=== PATIENT | female | born 1950 | race Caucasian/White ===

== ENCOUNTER → 2018-11-17 21:38 | Outpatient (CLI) | payer MEDICARE, OTHER, SELFPAY ==
[2018-11-17 16:16] VITALS: BMI 30.9
[2018-11-17 21:56] LABS: Absolute Lymphocyte Count 2.05 X10^3/ul (0.83-4.51); Absolute Neutrophil Count 3.5 X10^3/uL (2.0-7.7); Basophil# 0.04 X10^3/uL; Basophil% 0.6 % (0-1); Eosinophil# 0.08 X10^3/uL; Eosinophils% 1.3 % (0-5); Hematocrit 48.6 % (37-47); Hemoglobin 15.2 g/dl (12.0-15.0); Lymphocyte # 2.05 X10^3/ul (4.0); Lymphocyte % 32.2 % (19-41); Mean Corp Hgb Conc 31.3 g/gl (32-36); Mean Corpuscular Hgb 26.4 pg (27.0-32.0); Mean Corpuscular Volume 84.4 fL (81-99); Mean Platelet Vol. 9.7 fl (6.2-12.0); Monocyte# 0.66 X10^3/uL; Monocyte% 10.4 % (0-10); Neutrophil # 3.53 X10^3/uL (2.7-7.7); Neutrophil % 55.3 % (47-70); Platelet Count 262 K/mm3 (150-450); RBC Distribution Width CV 14.9 % (11.6-14.6); Red Blood Count 5.76 M/mm3 (4.2-5.4); White Blood Count 6.4 K/mm3 (4.4-11.0)
[2018-11-17 21:57] LABS: POSITIVE COUNT NO; POSITIVE DIFFERENTIAL NO; POSITIVE MORPHOLOGY NO
[2018-11-17 22:06] LABS: AST(SGOT) 29 U/L (15-37); Alanine Aminotransfer ALT/SGPT 52 U/L (13-56); Albumin, Serum 4.1 g/dL (3.2-5.0); Alkaline Phosphatase 86 U/L (45-117); Anion Gap 9 (5-15); BUN 22 mg/dL (7-18); BUN/Creat Ratio 19.8 RATIO (10-20); Calcium,Total 9.3 mg/dL (8.5-10.1); Chloride 103 mmol/L (98-107); Cholesterol 237 mg/dL (200); Creatinine, Serum 1.11 mg/dL (0.55-1.02); EST Glomerular Filtration Rate 52 mL/min (>60); Est Glom Filt Rate - Afr Amer 63 mL/min (>60); Globulin 4.1 g/dL (2.2-4.2); Glucose 81 mg/dL (74-106); High Density Lipoprotein 68 mg/dL; Magnesium 2.6 mg/dL (1.6-2.6); Potassium 4.4 mmol/L (3.5-5.1); Protein, Total 8.2 g/dL (6.4-8.2); Sodium Level 141 mmol/L (136-145); Triglycerides 107 mg/dL; Very Low Density Lipoprotein 21 mg/dL (5-40)
== END ==
PROVIDERS: Visit Provider Nurse Practitioner
DX: I10 Essential (primary) hypertension (principal); G25.81 Restless legs syndrome; I49.8 Other specified cardiac arrhythmias; R00.0 Tachycardia, unspecified
CPT/HCPCS: 80053; 80061; 83735; 84484; 85025

== ENCOUNTER → 2018-11-28 12:34 | Outpatient (CLI) | payer MEDICARE, OTHER, SELFPAY ==
[2018-11-17 16:16] VITALS: BMI 30.9
--- NOTE | 2018-11-28 12:42 | VDLE_ITS ---
Reason For Study: edema RIGHT LEFT CFV is compressible, spontaneous, phasic, CFV is compressible, spontaneous, phasic, competent and demonstrates normal competent, and demonstrates normal augmentation. augmentation. FV is compressible, spontaneous, phasic, FV is compressible, spontaneous, phasic, competent and demonstrates normal competent and demonstrates normal augmentation. augmentation. POP V is compressible, spontaneous, phasic, POP V is compressible, spontaneous, phasic, competent and demonstrates normal competent and demonstrates normal augmentation. augmentation. T/P Trunk is compressible. T/P Trunk is compressible. PTV is compressible. PTV is compressible. RT PerV is compressible. LT PerV is compressible. S-F Junction is competent. S-F Junction is competent. GSV is competent. GSV is competent above the knee, but SSV is competent. incompetent below the knee for greater Procedure than .5 seconds. GSV measures .2 x .208 cm. Exam performed in department. SSV is competent. The exam was diagnostic. Interpretation Summary Deep veins of the lower extremities are bilaterally patent and compressible segmentally. There is no evidence of deep vein thrombosis on either side. Valvular competence appears intact within the proximal deep venous systems bilaterally. The greater saphenous veins appear bilaterally patent and compressible segmentally. Sapheno-femoral junctions are bilaterally competent . The right greater saphenous vein appears segmentally competent. The left greater saphenous vein appears competent above the knee. The left greater saphenous vein appears incompetent below the knee. Small saphenous veins are patent and competent bilaterally. Ordering Physician: Sandra Bridges Performed By: Anson Campoverde RVT
--- NOTE | 2018-11-28 12:43 | ART_ITS ---
Reason For Study: PVD Left Segmental Pressures The left dorsalis pedis waveforms are triphasic. The left posterior tibial artery waveforms are triphasic. Left brachial= 141mmHg. Left posterior tibial artery = 159mmHg. Left dorsalis pedis artery = 147mmHg. Right Segmental Pressures The right posterior tibial artery waveforms are triphasic. The right dorsalis pedis waveforms are triphasic. Right brachial= 143mmHg. Right posterior tibial artery = 155mmHg. Right dorsalis pedis artery = 158mmHg. Indices The right ankle brachial index by the dorsalis pedis is 1.1. The right ankle brachial index by the posterior tibial artery is 1.08. The left ankle brachial index by the dorsalis pedis is 1.03. The left ankle brachial index by the posterior tibial artery is 1.11. Interpretation Summary Triphasic waveforms are noted at ankle level bilaterally. Pulse-volume recordings demonstrate satisfactory waveform amplitudes at low-thigh, calf, and ankle levels bilaterally, though are diminished at digital level on the left. Resting ankle-brachial indices appear bilaterally normal. There is no evidence of significant arterial occlusive disease. Ordering Physician: Sandra Bridges Performed By: CANDY SANDERSON [place]
== END ==
PROVIDERS: Family Provider Nurse Practitioner; PCP Nurse Practitioner; Referring Provider Nurse Practitioner; Visit Provider Nurse Practitioner
DX: G25.81 Restless legs syndrome (principal); I73.9 Peripheral vascular disease, unspecified; R60.0 Localized edema
CPT/HCPCS: 93923; 93970

== ENCOUNTER → 2020-03-12 20:44 | Outpatient (CLI) | payer MEDICARE, OTHER, SELFPAY ==
[2020-03-12 15:02] VITALS: BMI 31.3
[2020-03-12 21:06] LABS: Absolute Lymphocyte Count 2.05 X10^3/uL (0.83-4.51); Absolute Neutrophil Count 3.4 X10^3/uL (2.0-7.7); Basophil# 0.05 X10^3/uL; Basophil% 0.8 % (0-1); Eosinophil# 0.16 X10^3/uL; Eosinophils% 2.5 % (0-5); Lymphocyte # 2.05 X10^3/ul (4.0); Lymphocyte % 31.9 % (19-41); Mean Corp Hgb Conc 31.9 g/dL (32-36); Mean Corpuscular Volume 84.5 fL (81-99); Mean Platelet Vol. 9.7 fl (6.2-12.0); Monocyte# 0.71 X10^3/uL; NRBC Flagged by Analyzer 0 % (0-5); Neutrophil # 3.44 X10^3/uL (2.7-7.7); Neutrophil % 53.5 % (47-70); Platelet Count 296 K/mm3 (150-450); RBC Distribution Width CV 14.2 % (11.6-14.6); RBC Distribution Width SD 43.6 fl (35.1-43.9); Red Blood Count 5.56 M/mm3 (4.2-5.4); White Blood Count 6.4 K/mm3 (4.4-11.0)
[2020-03-12 21:24] LABS: AST(SGOT) 58 U/L (15-37); Alanine Aminotransfer ALT/SGPT 99 U/L (13-56); Albumin, Serum 3.8 g/dL (3.2-5.0); Alkaline Phosphatase 72 U/L (45-117); Anion Gap 9 (5-15); BUN 21 mg/dL (7-18); BUN/Creat Ratio 20.6 RATIO (10-20); CRP, High Sensitivity Cardiac 4.62 mg/L; Calcium,Total 9.2 mg/dL (8.5-10.1); Chloride 99 mmol/L (98-107); Cholesterol 263 mg/dL (200); Creatinine, Serum 1.02 mg/dL (0.55-1.02); EST Glomerular Filtration Rate 57 mL/min (>60); Est Glom Filt Rate - Afr Amer 69 mL/min (>60); Globulin 3.9 g/dL (2.2-4.2); Glucose 85 mg/dL (74-106); High Density Lipoprotein 66 mg/dL; Potassium 3.1 mmol/L (3.5-5.1); Protein, Total 7.7 g/dL (6.4-8.2); Sodium Level 138 mmol/L (136-145); Thyroid Stim Hormone (TSH) 2.12 uIU/mL (0.358-3.74); Triglycerides 137 mg/dL; Very Low Density Lipoprotein 27 mg/dL (5-40)
== END ==
PROVIDERS: Visit Provider Nurse Practitioner
DX: D64.9 Anemia, unspecified (principal); I10 Essential (primary) hypertension
CPT/HCPCS: 80053; 80061; 84443; 85025; 86141

== ENCOUNTER → 2020-04-28 08:39 | Outpatient (CLI) | payer MEDICARE, OTHER, SELFPAY ==
[2020-04-17 13:05] VITALS: BMI 31.0
--- NOTE | 2020-04-28 08:40 | US_ITS ---
STUDY: ABDOMINAL ULTRASOUND - RIGHT UPPER QUADRANT REASON FOR VISIT: Female, 69 years old FATTY LIVER TECHNIQUE: Ultrasound evaluation of the right upper quadrant was performed with real-time and static patterson-scale imaging. TECHNICAL QUALITY: Adequate. COMPARISON: Comparison is made with prior CT scan of the abdomen dated June 10, 2013. FINDINGS: Liver: The liver measures 16.4 cm. There is increased echogenicity consistent with fatty infiltration. The bile ducts are within normal limits. There is hepatic color flow. The direction of portal flow is hepatopetal. There is no demonstrated mass lesion. Gallbladder: The patient is status post cholecystectomy. Common Bile Duct (C.B.D.): The common bile duct measures 7.0 mm. Pancreas: Normal size of the head, body and tail of the pancreas. There is normal echogenicity of the pancreas. There is no demonstrated pancreatic mass or cyst. Right Kidney: Normal size of the right kidney. The right kidney measures 9.6 cm x 4.4 cm x 3.8 cm. Normal renal cortex. The right cortex measures 1.2 cm. There is no demonstrated renal mass or cyst. There is no right hydronephrosis. US/Liver IMPRESSION: Fatty infiltration of the liver. Electronically Signed: Philip Klein, at 14:32 EDT , Service support ,
== END ==
PROVIDERS: PCP Nurse Practitioner; Referring Provider Internal Medicine Cardiovascular Disease; Visit Provider Internal Medicine Cardiovascular Disease
DX: K76.0 Fatty (change of) liver, not elsewhere classified (principal); R94.5 Abnormal results of liver function studies
CPT/HCPCS: 76705

== ENCOUNTER → 2020-04-30 09:53 | Outpatient (CLI) | payer MEDICARE, OTHER, SELFPAY ==
[2020-04-17 13:05] VITALS: BMI 31.0
--- NOTE | 2020-04-30 09:54 | ECHOCS_ITS ---
Reason For Study: Dyspnea/SOB Procedure This was a 2D Doppler, Color Flow transthoracic echocardiogram. The study was technically difficult. Contrast injection was performed. Exam performed in department. Left Ventricle Normal LV size. Left ventricular systolic function is normal. The estimated ejection fraction is 65 %. Diastolic function is indeterminate. No regional wall motion abnormalities noted. Right Ventricle Normal RV size. Normal systolic function. Atria Normal left atrium. Normal right atrium. No doppler evidence for ASD. Mitral Valve There is no mitral annular calcification. Normal mitral valve. Mild (1+) mitral valve insufficiency. Tricuspid Valve Normal tricuspid valve. Mild tricuspid valve insufficiency. Right ventricular systolic pressure estimated to be 26 mmHg. Aortic Valve Trisinus/trileaflet aortic valve. Mild focal aortic valve calcification. Pulmonic Valve The pulmonic valve is not well visualized. Great Vessels The aortic root is not well visualized. Pericardium/Pleural No pericardial effusion. Medication 22 gauge I.V. with prn adaptor inserted into left arm. Diluted definity 2ml given slow IV push to enhance endocardial definition. MMode/2D Measurements & Calculations LVIDd: 4.3 cm IVSd: 0.89 cm LA dimension: 3.3 cm LVIDs: 2.4 cm LVPWd: 0.67 cm FS: 44.5 % LAV(MOD-bp): 43.2 ml LA A4 area: 14.5 cm2 RA A4 area: 14.0 cm2 LAV(MOD-bp) Indexed: 22.1 ml/m2 LAV(MOD-sp2): 49.2 ml LAV(MOD-sp4): 37.2 ml Time Measurements MV dec time: 0.19 sec Doppler Measurements & Calculations MV E max benji: 80.3 cm/sec Lat Peak E' Benji: 8.7 cm/sec Med Peak E' Benji: 5.9 cm/sec MV A max benji: 96.5 cm/sec E/E' lat: 9.2 E/E' med: 13.7 MV E/A: 0.83 MV V2 max: 97.3 cm/sec MV P1/2t max benji: 97.3 cm/sec Ao V2 max: 149.8 cm/sec MV max P.8 mmHg MV P1/2t: 94.5 msec Ao max P.0 mmHg MV V2 mean: 52.9 cm/sec MV dec slope: 301.5 cm/sec2 MV mean P.3 mmHg MV V2 VTI: 36.9 cm MVA(P1/2t): 2.3 cm2 LV V1 max: 102.0 cm/sec PA V2 max: 55.0 cm/sec TR max benji: 242.0 cm/sec LV V1 max P.2 mmHg TR max P.4 mmHg Interpretation Summary The study was technically difficult. Contrast injection was performed. Left ventricular systolic function is normal. The estimated ejection fraction is 65 %. Mild (1+) mitral valve insufficiency. Mild tricuspid valve insufficiency. Mild focal aortic valve calcification. Right ventricular systolic pressure estimated to be 26 mmHg. Diastolic function is indeterminate. Ordering Physician: Antoine Hall Referring Physician: Antoine Hall Performed By: Daniel Velazquez, GILBERT
--- NOTE | 2020-04-30 10:10 | RAD_ITS ---
STUDY: X-RAY CHEST REASON FOR EXAM: Female, 69 years old. DYSPNEA ON EXERTION, HX BLOOD CLOTS, HX PNEUMONIA TECHNIQUE: 2 views COMPARISON: Prior chest radiograph from June 10, 2013 FINDINGS: The lungs are clear and expanded. There is no demonstrated pleural abnormality. Normal size heart. Normal mediastinum and henny. Normal visualized pulmonary arteries. There is atherosclerotic tortuosity of the aortic arch and descending thoracic aorta. Normal visualized thoracic spine. Normal visualized ribs, clavicles, and shoulders. Status post cholecystectomy. RAD/Chest PA and Lateral IMPRESSION: No acute cardiopulmonary findings or changes. Negative for infiltrates, new consolidation, atelectasis or pleural effusion. Normal cardiac size. Negative for pulmonary venous congestion. Mild tortuosity of the thoracic aorta. Electronically Signed: Lois Brady MD at 16:58 EDT , Service support ,
[2020-04-30 10:50] LABS: BUN 25 mg/dL (7-18); Creatinine, Serum 1.05 mg/dL (0.55-1.02); Glucose 102 mg/dL (74-106)
[2020-04-30 10:51] LABS: Anion Gap 6 (5-15); BUN/Creat Ratio 23.8 RATIO (10-20); Calcium,Total 9.3 mg/dL (8.5-10.1); Chloride 99 mmol/L (98-107); EST Glomerular Filtration Rate 56 mL/min (>60); Est Glom Filt Rate - Afr Amer 67 mL/min (>60); Magnesium 2.1 mg/dL (1.6-2.6); Potassium 3.6 mmol/L (3.5-5.1); Sodium Level 135 mmol/L (136-145)
== END ==
PROVIDERS: Referring Provider Internal Medicine Cardiovascular Disease; Visit Provider Internal Medicine Cardiovascular Disease
DX: I10 Essential (primary) hypertension (principal); E78.2 Mixed hyperlipidemia; R06.00 Dyspnea, unspecified; R53.83 Other fatigue; R06.02 Shortness of breath; E87.6 Hypokalemia
CPT/HCPCS: 71046; 80048; 83735; 93306; Q9957; A4216; C8929

== ENCOUNTER → 2020-05-06 09:29 | Outpatient (CLI) | payer MEDICARE, OTHER, SELFPAY ==
[2020-04-17 13:05] VITALS: BMI 31.0
--- NOTE | 2020-05-06 12:25 | STRESSREP_ITS ---
Stress Test Report Date: 05-06-2020 Procedure: Exercise tolerance test Indications: Shortness of breath/dyspnea on exertion; fatigue Consent: Per the patient Procedure: The patient exercised on a Dwayne protocol for 6 minutes completing Stage 2 achieving a peak heart rate of 131 bpm (85 % predicted maximal heart rate) with a peak blood pressure 160/70 mmHg and a peak MET capacity of approximately 7 mET's. The baseline ECG demonstrated normal sinus rhythm; nonspecific T wave abnormality. The peak exercise ECG demonstrated approximately 0.5 to 1.[address] segment depression in leads II, III, aVF, and V3 through V6 with gradual resolution towards baseline in recovery. There was a rare PAC during exercise. The functional capacity was considered average. The patient had no complaint of chest discomfort during exercise or recovery. The examination was discontinued secondary to dyspnea and fatigue. Impression: 1. Technically adequate (percent predicted maximal heart rate greater than 85%) exercise tolerance test 2. Peak exercise ECG with approximately 0.5 to 1.[address] segment depression in leads II, III, aVF, and V3 through V6 with gradual resolution towards baseline in recovery 3. There was a rare PAC during exercise This note was generated with Jellynote[employer] software. It may contain incorrect words, spelling, and punctuation that were not noted in checking the note before signing.
== END ==
PROVIDERS: Referring Provider Internal Medicine Cardiovascular Disease; Visit Provider Internal Medicine Cardiovascular Disease
DX: R06.00 Dyspnea, unspecified (principal); I10 Essential (primary) hypertension
CPT/HCPCS: 93017

== ENCOUNTER → 2020-05-13 06:19 | Outpatient (CLI) | payer MEDICARE, OTHER, SELFPAY ==
[2020-04-17 13:05] VITALS: BMI 31.0
--- NOTE | 2020-05-13 08:06 | STRESSREP_ITS ---
Stress Test Report Date: 05-13-2020 Procedure: Exercise tolerance test/imaging study Indications: Abnormal exercise tolerance test; chest discomfort; fatigue; hyperlipidemia; hypertension Consent: Per the patient Procedure: The patient exercised on a Dwayne protocol for 6 minutes completing Stage II achieving a peak heart rate of 150 bpm (98 % predicted maximal heart rate) with a peak blood pressure 192/90 mmHg and a peak MET capacity of 7 METs. The baseline ECG demonstrated normal sinus rhythm. The peak exercise ECG demonstrated somatic/motion artifact with [id number] ST segment variability with approximately 1 to 1.[address] segment depression in leads II, III, aVF, and approximately 0.5 to 1.[address] segment depression in lead V4 through V6 with subsequent resolution towards baseline in recovery. There were occasional PVCs and rare ventricular couplets during exercise and early recovery. The functional capacity was considered average. There was no complaint of chest discomfort during exercise or recovery. The examination was discontinued secondary to dyspnea and fatigue. Impression: 1. Technically adequate (percent predicted maximal heart rate greater than 85%) exercise tolerance test 2. Peak exercise ECG demonstrated somatic/motion artifact with [id number] ST segment variability with approximately 1 to 1.[address] segment depression in leads II, III, aVF, and approximately 0.5 to 1.[address] segment depression in lead V4 through V6 with subsequent resolution towards baseline in recovery 3. There were occasional PVCs and rare ventricular couplets during exercise and early recovery 4. Nuclear images pending Myocardial perfusion imaging study: Technique: The patient was injected with mCi of technetium 99m Cardiolite and subsequently rest SPECT Cardiolite nuclear imaging was obtained in the horizontal long, vertical long, and short axis views. The patient exercised on a Dwayne protocol for 6 minutes completing Stage II achieving a peak heart rate of 150 bpm (98 % predicted maximal heart rate) with a peak blood pressure 192/90 mmHg and a peak MET capacity of 7 METs. The patient was injected with mCi of technetium 99m Cardiolite and subsequently stress SPECT Cardiolite nuclear imaging was obtained in the horizontal long, vertical long, and short axis views. A gated Cardiolite study at peak stress was obtained. Interpretation: Rest and stress SPECT Cardiolite nuclear imaging status post realignment, normalization, and attenuation correction, demonstrates a small area of subtle diminished tracer uptake near the apical segments without significant change between rest and stress. There is end systolic thickening and brightening. The gated Cardiolite study demonstrates myocardial thickening and inward wall motion. The reported LVEF is 85 %. Impression: 1. Rest and stress SPECT Cardiolite nuclear imaging demonstrate myocardial perfusion change appearing compatible with the effects of physiologic apical thinning with no myocardial perfusion changes considered diagnostic for associated stress-induced myocardial ischemia. 2. The gated Cardiolite study reports an LVEF of 85 %. This note was generated with [employer] software. It may contain incorrect words, spelling, and punctuation that were not noted in checking the note before signing.
== END ==
PROVIDERS: Referring Provider Nurse Practitioner Family; Visit Provider Nurse Practitioner Family
DX: R94.30 Abnormal result of cardiovascular function study, unspecified (principal); R53.83 Other fatigue; R06.00 Dyspnea, unspecified; I10 Essential (primary) hypertension; E78.5 Hyperlipidemia, unspecified
CPT/HCPCS: 78452; 93017; A9500; A4216

== ENCOUNTER → 2020-05-19 10:32 | Outpatient (CLI) | payer MEDICARE, OTHER, SELFPAY ==
[2020-04-17 13:05] VITALS: BMI 31.0
[2020-05-19 11:30] LABS: Anion Gap 6 (5-15); BUN 23 mg/dL (7-18); BUN/Creat Ratio 20.4 RATIO (10-20); Calcium,Total 9.3 mg/dL (8.5-10.1); Chloride 103 mmol/L (98-107); Creatinine, Serum 1.13 mg/dL (0.55-1.02); EST Glomerular Filtration Rate 51 mL/min (>60); Est Glom Filt Rate - Afr Amer 62 mL/min (>60); Glucose 94 mg/dL (74-106); Potassium 3.4 mmol/L (3.5-5.1); Sodium Level 139 mmol/L (136-145)
== END ==
PROVIDERS: Referring Provider Internal Medicine Cardiovascular Disease; Visit Provider Internal Medicine Cardiovascular Disease
DX: E78.5 Hyperlipidemia, unspecified (principal); I10 Essential (primary) hypertension; I49.8 Other specified cardiac arrhythmias
CPT/HCPCS: 36415; 80048

== ENCOUNTER → 2020-05-29 10:38 | Outpatient (CLI) | payer MEDICARE, OTHER, SELFPAY ==
[2020-04-17 13:05] VITALS: BMI 31.0
[2020-05-29 11:31] LABS: Anion Gap 3 (5-15); BUN 18 mg/dL (7-18); BUN/Creat Ratio 18.3 RATIO (10-20); Calcium,Total 9.1 mg/dL (8.5-10.1); Chloride 109 mmol/L (98-107); Creatinine, Serum 0.99 mg/dL (0.55-1.02); EST Glomerular Filtration Rate 60 mL/min (>60); Est Glom Filt Rate - Afr Amer 72 mL/min (>60); Glucose 96 mg/dL (74-106); Potassium 4.5 mmol/L (3.5-5.1); Sodium Level 141 mmol/L (136-145)
== END ==
PROVIDERS: Referring Provider Internal Medicine Cardiovascular Disease; Visit Provider Internal Medicine Cardiovascular Disease
DX: E78.5 Hyperlipidemia, unspecified (principal); I49.8 Other specified cardiac arrhythmias; I10 Essential (primary) hypertension
CPT/HCPCS: 36415; 80048

== ENCOUNTER → 2020-06-04 11:56 | Outpatient (CLI) | payer MEDICARE, OTHER, SELFPAY ==
[2020-06-02 12:37] VITALS: BMI 30.9
[2020-06-04 16:19] LABS: AST(SGOT) 79 U/L (15-37); Alanine Aminotransfer ALT/SGPT 139 U/L (13-56); Albumin, Serum 3.9 g/dL (3.2-5.0); Alkaline Phosphatase 71 U/L (45-117); Bilirubin, Direct 0.18 mg/dL (0.00-0.30); GGTP 83 U/L (5-55); Globulin 4.1 g/dL (2.2-4.2)
[2020-06-05 08:42] LABS: Hepatitis B Surface Antigen Non-Reactive (Nonreactive)
[2020-06-06 16:35] LABS: ANTINUCLEAR ANTIBODIES DIRECT Negative (Negative)
[2020-06-06 20:36] LABS: Anti-Smooth Muscle ABS 2 Units (0-19)
== END ==
PROVIDERS: Referring Provider Internal Medicine Gastroenterology; Visit Provider Internal Medicine Gastroenterology
DX: K76.0 Fatty (change of) liver, not elsewhere classified (principal)
CPT/HCPCS: 36415; 80076; 82977; 83516; 86038; 87340

== ENCOUNTER 2020-12-18 07:02 | Outpatient (RCR) | payer MEDICARE, OTHER, SELFPAY ==
[2020-06-02 12:37] VITALS: BMI 30.9
[2020-12-18] MEDS: COVID-19 VACC, MRNA(PFIZER)/PF 30 MCG/0.3 ML SYRINGE IM (11:32)
[2021-01-08] MEDS: COVID-19 VACC, MRNA(PFIZER)/PF 30 MCG/0.3 ML SYRINGE IM (11:33)
== END 2020-12-18 23:59 ==
LOC: IMMUN 07:02
PROVIDERS: Referring Provider Family Medicine; Visit Provider Family Medicine
DX: Z23 Encounter for immunization (principal)
CPT/HCPCS: 0001A; 0002A; 91300

== ENCOUNTER → 2021-02-11 08:35 | Outpatient (CLI) | payer MEDICARE, OTHER, SELFPAY ==
[2020-06-02 12:37] VITALS: BMI 30.9
[2021-02-11 10:04] LABS: Anion Gap 8 (5-15); BUN 24 mg/dL (7-18); BUN/Creat Ratio 24.8 RATIO (10-20); Calcium,Total 9.3 mg/dL (8.5-10.1); Chloride 100 mmol/L (98-107); Creatinine, Serum 0.97 mg/dL (0.55-1.02); EST Glomerular Filtration Rate 61 mL/min (>60); Est Glom Filt Rate - Afr Amer 74 mL/min (>60); Glucose 104 mg/dL (74-106); Potassium 3.6 mmol/L (3.5-5.1); Sodium Level 138 mmol/L (136-145)
== END ==
PROVIDERS: Nurse Practitioner Family; Referring Provider Internal Medicine Cardiovascular Disease; Visit Provider Internal Medicine Cardiovascular Disease
DX: E78.5 Hyperlipidemia, unspecified (principal); I10 Essential (primary) hypertension; Z79.899 Other long term (current) drug therapy
CPT/HCPCS: 36415; 80048

== ENCOUNTER → 2021-05-15 10:55 | Outpatient (CLI) | payer MEDICARE, OTHER, SELFPAY ==
[2021-05-12 15:47] VITALS: BMI 31.3
[2021-05-15 12:56] LABS: AST(SGOT) 32 U/L (15-37); Alanine Aminotransfer ALT/SGPT 53 U/L (13-56); Albumin, Serum 3.6 g/dL (3.2-5.0); Alkaline Phosphatase 71 U/L (45-117); Anion Gap 6 (5-15); BUN 20 mg/dL (7-18); BUN/Creat Ratio 21.2 RATIO (10-20); Bilirubin, Direct 0.09 mg/dL (0.00-0.30); Calcium,Total 9.3 mg/dL (8.5-10.1); Chloride 101 mmol/L (98-107); Cholesterol 287 mg/dL (200); Creatinine, Serum 0.94 mg/dL (0.55-1.02); EST Glomerular Filtration Rate 63 mL/min (>60); Est Glom Filt Rate - Afr Amer 76 mL/min (>60); Globulin 4.1 g/dL (2.2-4.2); Glucose 88 mg/dL (74-106); High Density Lipoprotein 72 mg/dL; Potassium 4.1 mmol/L (3.5-5.1); Protein, Total 7.7 g/dL (6.4-8.2); Sodium Level 137 mmol/L (136-145); Triglycerides 134 mg/dL; Very Low Density Lipoprotein 27 mg/dL (5-40)
== END ==
PROVIDERS: Referring Provider Internal Medicine Cardiovascular Disease; Visit Provider Internal Medicine Cardiovascular Disease
DX: I10 Essential (primary) hypertension (principal); E78.2 Mixed hyperlipidemia; I49.8 Other specified cardiac arrhythmias; R94.5 Abnormal results of liver function studies
CPT/HCPCS: 36415; 80048; 80061; 80076

== ENCOUNTER → 2022-10-01 | Outpatient (CLI) | payer MEDICARE, OTHER, SELFPAY ==
--- NOTE | 2022-10-01 10:38 | BI_ITS ---
MAMMOGRAPHY - BILATERAL SCREENING REASON FOR EXAM: Female, 71 years old. Routine annual screening examination. PERTINENT HISTORY: Mother with breast cancer. Bilateral breast implants. TECHNIQUE: Digital bilateral breast elodia (3D mammographic acquisition) in the CC and MLO projections. 2-D mediolateral oblique (MLO) and craniocaudad (CC) views of both breasts were obtained. CAD: Full Field Digital Mammography with Computer Added Detection was performed. COMPARISON: Comparison is made with prior examination 02/07/2021. FINDINGS: Breast Composition: There are scattered areas of fibroglandular density. There are no dominant masses or suspicious calcifications. Stable appearance of the bilateral breast implants. No other significant abnormalities are identified. There has been no significant change since the prior study. BI/SCRN MAMM (CAD)W/ELODIA BILAT IMPRESSION: Stable bilateral screening mammogram. Yearly follow-up mammogram recommended. (A) ASSESSMENT CATEGORY: BIRADS Category 2: Benign. A letter regarding these results will be sent to the patient by the facility within 30 days. Approximately 10% of breast cancers are not detected by mammography. A normal mammogram should not delay biopsy of a clinically suspicious abnormality. [id number] Electronically Signed: Philip Klein MD at 10:09 EST ,
== END | disposition home or self-care (01) ==
PROVIDERS: PCP Family Medicine; Referring Provider Family Medicine; Visit Provider Family Medicine
DX: Z12.31 Encounter for screening mammogram for malignant neoplasm of breast (principal)
CPT/HCPCS: 77063; 77067

== ENCOUNTER 2022-12-14 19:33 | Observation (INO) | payer MEDICARE, OTHER, SELFPAY ==
[2022-12-14 19:35] VITALS: BP 149/98; PULSE 92; RESP 15; TEMP 36.4; O2SAT 98; BMI 29.0
[2022-12-14 19:56] VITALS: BMI 29.0
--- NOTE | 2022-12-14 20:11 | CT_ITS ---
EXAM: CT HEAD WITHOUT INTRAVENOUS CONTRAST CLINICAL INDICATION: weakness TECHNIQUE: Multiple axial images were obtained of the head without intravenous contrast. This CT exam was performed using one or more of the following dose reduction techniques: automated exposure control, adjustment of the mA and/or kV according to patient size, and/or use of iterative reconstruction technique. This report was created using [employer] report generation technology. RADIATION DOSE: CTDIvol = 44.99 mGy, DLP = 812.98 mGy-cm COMPARISON: None. FINDINGS: BRAIN AND EXTRA-AXIAL SPACES: Unremarkable. No intra- or extra-axial hemorrhage. No evidence of acute infarct. No intracranial mass or mass effect. There is preservation of the patterson/white matter interface. Posterior fossa structures are unremarkable. Ventricles are appropriate for age. No hydrocephalus. Basal cisterns are patent. BONES/JOINTS: Unremarkable. No discrete lytic or blastic abnormalities. SINUSES: Unremarkable as visualized. Clear. MASTOID AIR CELLS: Unremarkable. Clear. ORBITS: Visualized globes, extraocular muscles, optic nerves and retrobulbar fat appear unremarkable. CT/Brain/Head without Contrast IMPRESSION: Negative head/brain CT without intravenous contrast. Electronically Signed: Yobani Huang MD at 20:46 EST ,
--- NOTE | 2022-12-14 20:12 | EKG12_ITS ---
Test Reason : DYSRHYTHMIA Blood Pressure : / mmHG Vent. Rate : 088 BPM Atrial Rate : 088 BPM P-R Int : 152 ms QRS Dur : 082 ms QT Int : 368 ms P-R-T Axes : 059 033 033 degrees QTc Int : 445 ms Normal sinus rhythm Normal ECG Confirmed by NAYA VALADEZ, JOSE ([id number]), editorial cartoonist MOISÉS DIXON ([id number]) on 12/16/2022 9:40:36 AM Referred By: CRISTINA Confirmed By:JOSE PERSON MD
[2022-12-14 20:18] VITALS: BMI 29.0
[2022-12-14 20:27] LABS: Absolute Lymphocyte Count 1.74 X10^3/uL (0.83-4.51); Absolute Neutrophil Count 6.5 X10^3/uL (2.0-7.7); Basophil# 0.07 X10^3/uL; Basophil% 0.8 % (0-1); Eosinophil# 0.07 X10^3/uL; Eosinophils% 0.8 % (0-5); Hematocrit 48.3 % (37-47); Lymphocyte # 1.74 X10^3/ul (0.83-4.51); Lymphocyte % 18.9 % (19-41); Mean Corp Hgb Conc 31.1 g/dL (32-36); Mean Corpuscular Hgb 26.5 pg (27.0-32.0); Mean Corpuscular Volume 85.3 fL (81-99); Mean Platelet Vol. 9.5 fl (6.2-12.0); Monocyte# 0.81 X10^3/uL; Monocyte% 8.8 % (0-10); NRBC Flagged by Analyzer 0 % (0-5); Neutrophil # 6.45 X10^3/uL (2.7-7.7); Neutrophil % 70.2 % (47-70); Platelet Count 301 K/mm3 (150-450); RBC Distribution Width CV 15.5 % (11.6-14.6); Red Blood Count 5.66 M/mm3 (4.2-5.4); White Blood Count 9.2 K/mm3 (4.4-11.0)
[2022-12-14 20:43] LABS: AST(SGOT) 16 U/L (15-37); Alanine Aminotransfer ALT/SGPT 21 U/L (13-56); Alkaline Phosphatase 72 U/L (45-117); Anion Gap 10 (5-15); BUN 19 mg/dL (7-18); BUN/Creat Ratio 16.1 RATIO (10-20); Calcium,Total 9.7 mg/dL (8.5-10.1); Chloride 103 mmol/L (98-107); Creatinine, Serum 1.18 mg/dL (0.55-1.02); EST Glomerular Filtration Rate 48 mL/min (>60); Est Glom Filt Rate - Afr Amer 58 mL/min (>60); Estimated Creatinine Clearance 41.53 ml/min; Glucose 160 mg/dL (74-106); Potassium 3.8 mmol/L (3.5-5.1); Sodium Level 139 mmol/L (136-145); Troponin-I HS 5 pg/mL (3.0-54.0)
--- NOTE | 2022-12-14 21:21 | EX.ED.DYSGE1 ---
HPI History of Present Illness Chief Complaint: Neuro S/Sx Narrative Narrative: Patient presents with paresthesias right arm, paresthesias in the right leg, she does not know if she had difficulties with her speech or if she thought the right side of her tongue was swollen but she felt like something was not right. This has resolved. She was recently admitted for a pulmonary embolism at [facility] she is on Eliquis. She has a strong family history of of stroke. She does not know if her arm was weak or if she just had paresthesias she knows that her legs she could not move quite as well. She feels like symptoms have significantly improved. Symptoms lasted around an hour or less. There was an episode earlier this morning where she had some left inner thigh pain that she took [id number] analgesics and it improved. [facility] Medical History Abnormal liver function test Anemia Anemia B12 nutritional deficiency Dizziness Essential hypertension Fatty liver Fluttering heart History of blood clots History of DVT (deep vein thrombosis) (12/02/22) History of left heart catheterization (LHC) (~09/05/07) Hyperlipidemia Lower abdominal pain Lower extremity weakness Pneumonia Recurrent UTI Renal insufficiency Restless leg Home Medications meloxicam 15 mg tablet 15 mg PO DAILY PRN 05/12/21 [History Last Taken Unknown] ascorbate calcium (vitamin C) 500 mg tablet 500 mg PO .Weekly 09/14/22 [History Last Taken Unknown] aspirin 81 mg tablet,delayed release (Adult Low Dose Aspirin) 81 mg PO .QO week 09/14/22 [History Last Taken Unknown] magnesium oxide 400 mg PO .3X week 09/14/22 [History Last Taken Unknown] tumeric 100 mg-steven 150 mg-olive 50 mg-oreg 150 mg-caprylate capsule 1 cap PO .QOD 09/14/22 [History Last Taken Unknown] vitamin E mixed 400 unit capsule 400 unit PO DAILY 09/14/22 [History Last Taken Unknown] atenolol 25 mg tablet 25 mg PO BID 09/21/22 [History Last Taken Unknown] spironolactone 25 mg tablet 25 mg PO BID #60 tabs 11/09/22 [Rx Last Taken Unknown] apixaban 5 mg tablet (Eliquis) 5 mg PO .COMPLEX #1 TAB 12/07/22 [Rx Last Taken Unknown] Allergy/AdvReac Type Severity Reaction Status Date / Time sulfamethoxazole Allergy Severe UNK Verified 12/14/22 10:19 [From Bactrim] trimethoprim [From Bactrim] Allergy Severe UNK Verified 12/14/22 10:19 lisinopril AdvReac Severe cough Verified 12/14/22 10:19 Sulfa (Sulfonamide AdvReac Unknown unknown Verified 12/14/22 10:19 Antibiotics) Family History Mother CVA (cerebral vascular accident) Aneurysm Other Colon cancer Diabetes Heart disease Hypertension Kidney disease MVP (mitral valve prolapse) Surgical History History of appendectomy History of cholecystectomy Social History Smoking Status: Never smoker alcohol intake: never substance use type: does not use caffeine: Yes Type: coffee Number of servings: 1 ROS ROS ED ROS Narrative Past medical history: Reviewed, history of DVT, PE, thrombus at the right ventricle patient denies Medications: Reviewed Social history: Noncontributory Review of systems: All systems negative except as indicated General: No fever Eyes: No visual changes ENT: No upper airway congestion, normal voice Neck: No neck pain Cardiovascular: No chest pain Respiratory: No shortness of breath or cough Gastrointestinal: No abdominal pain, nausea vomiting or diarrhea Genitourinary: No dysuria Musculoskeletal: Denies myalgias no difficulty with ambulation Skin: No rash Neurological: as in HPI Psych: No recent behavioral changes Hematologic: No easy bleeding or easy bruising EXAM Physical Exam Narrative Exam Narrative: Physical exam General: Well nourished, Well developed, No Acute Distress Head: Normocephalic, Atraumatic Eyes: Conjunctiva not pale ENT: Moist mucous membranes Neck: Supple, Nontender, No lymphadenopathy Cardiovascular: Regular rate, Regular rhythm Respiratory: No distress, CTA bilaterally Abdomen: Soft, Nontender, Nondistended Back: Nontender, Normal Inspection. Negative for: CVA tenderness Extremities: Nontender, No edema Skin: Normal color, No rash Neurological: See NIH stroke scale Psychological: Normal affect Const Vital Signs: 12/14/22 19:35 Temperature 97.5 F L Temperature Source Temporal Pulse Rate 92 Respiratory Rate 15 Blood Pressure 149/98 H Blood Pressure Mean 115 Pulse Ox 98 Oxygen Delivery Method Room Air MDM MDM MDM Narrative Medical decision making narrative: A. Problems addressed Patient signs and symptoms are concerning for possible TIA likely in the MCA distribution on the left, I had a long discussion with the patient, her ABCD2 score is a 5 and the recommendation is for admission for an MRI. She also supposed to have echocardiogram tomorrow which could be done inpatient. B. Amount and/or complexity of the data 1. Echocardiogram done outpatient at [facility] shows multiple small thrombi on the right side of the heart in the ventricle CBC CMP troponin interpreted by me I discussed the patient with who was in the room 2. Independent interpretation of test Telemetry: Sinus rhythm with a rate of 88 without ectopy 3. I discussed with hospitalist for admission C. Risk of complications and/or morbidity Differential diagnosis: I thought about an intracranial bleed, intracranial mass and possible stroke as well as possible electrolyte abnormalities. Lab Data Labs: Laboratory Results - last 24 hr 12/14/22 12/14/22 19:50 19:50 WBC 9.2 RBC 5.66 H Hgb 15.0 Hct 48.3 H MCV 85.3 MCH 26.5 L MCHC 31.1 L RDW Std Deviation 48.0 H RDW Coeff of Imani 15.5 H Plt Count 301 MPV 9.5 Immature Gran % (Auto) 0.500 Neut % (Auto) 70.2 H Lymph % (Auto) 18.9 L [place] % (Auto) 8.8 Eos % (Auto) 0.8 Baso % (Auto) 0.8 Absolute Neuts (auto) 6.5 Absolute Lymphs (auto) 1.74 Nucleated RBC % 0 Sodium 139 Potassium 3.8 Chloride 103 Carbon Dioxide 26.0 Anion Gap 10 BUN 19 H Creatinine 1.18 H Estim Creat Clear Calc 41.53 Est GFR (MDRD) Af Amer 58 L Est GFR (MDRD) Non-Af 48 L BUN/Creatinine Ratio 16.1 Glucose 160 H Calcium 9.7 Total Bilirubin 0.30 AST 16 ALT 21 Alkaline Phosphatase 72 Troponin I High Sens 5 Total Protein 8.0 Albumin 4.0 Globulin 4.0 Albumin/Globulin Ratio 1.0 Radiography Diagnostic Testing: Clinical Impression(s) from Imaging Studies Brain CT 12/14/22 20:11 IMPRESSION: Negative head/brain CT without intravenous contrast. Electronically Signed: Yobani Huang MD at 20:46 EST , EKG Initial EKG: Comments: Sinus rhythm with a rate of 88. Normal CO and QTc intervals. No ischemic changes. Interpreted by emergency doctor Discharge Plan Triage Chief Complaint: Neuro S/Sx ED Provider: Antoine Allen Dx/Rx/DC Orders Clinical Impression: Pulmonary embolism, TIA (transient ischemic attack), Arm paresthesia, left Prescriptions: No Action aspirin [Adult Low Dose Aspirin] 81 mg tablet,delayed release (DR/EC) 81 mg PO .QO week meloxicam 15 mg tablet 15 mg PO DAILY PRN vitamin E mixed 400 unit capsule 400 unit PO DAILY ascorbate calcium (vitamin C) 500 mg tablet 500 mg PO .Weekly magnesium oxide 400 mg magnesium tablet 400 mg PO .3X week hulwrbx-vohv-khvgr-oreg-capryl 100 mg-150 mg- 50 mg-150 mg capsule 1 cap PO .QOD atenolol 25 mg tablet 25 mg PO BID spironolactone 25 mg tablet 25 mg PO BID Qty: 60 11RF Eliquis 5 mg tablet 5 mg PO .COMPLEX Qty: 1 0RF Rx Instructions: 5 mg orally 10 mg (2 tablets) twice a day for 7 days (until Tuesday12/11/22) , then 5 mg twice a day; Primary Care Provider: Isabela Juarez Referrals: Isabela Juarez DO [Primary Care Provider] - Disposition Disposition: Acute Care Hospital [facility] NIHSS NIHSS 1a. Level of Consciousness: Alert; keenly responsive 1b. LOC Questions: Answers BOTH questions correctly. 1c. LOC Commands: Performs both tasks correctly. 2. Best Gaze: Normal 3. Visual: No visual loss 4. Facial Palsy: Normal symmetrical movements 5a. Left Arm: No drift; arm holds 90 (or 45) degrees for full 10 seconds 5b. Right Arm: No drift; arm holds 90 (or 45) degrees for full 10 seconds 6a. Left Leg: No drift; leg holds 30-degree position for full 5 seconds 6b. Right Leg: No drift; leg holds 30-degree position for full 5 seconds 7. Limb Ataxia: Absent 8. Sensory: Normal; no sensory loss 9. Best Language: No aphasia; normal 10. Dysarthria: Normal 11. Extinction and Inattention: No abnormality Total: 0
--- NOTE | 2022-12-14 21:58 | HP.PCM.HOS_ITS ---
HPI - General General Date of Admission: 12/14/22 Date of Service: 12/14/22 Chief Complaint: Numbness HPI Narrative SAVANNAH GRIER, is a 72 F with a significant history of hypertension; thrombosis of right ventricle; DVT and PE who presents emergency department with right and right leg numbness that started about an hour before presentation. Patient denies aphasia but she reports dryness of her mouth. States oversensing was palpitations. Also she reports some irregular heart rates measured at on a machine at home. She reports some tachycardia She denies any weakness. Of note patient was at [facility] for DVT and PE on December 04, 2022. She was discharged home on Eliquis. [facility] Medical History Abnormal liver function test Anemia Anemia B12 nutritional deficiency Dizziness Essential hypertension Fatty liver Fluttering heart History of blood clots History of DVT (deep vein thrombosis) (12/02/22) History of left heart catheterization (LHC) (~09/05/07) Hyperlipidemia Lower abdominal pain Lower extremity weakness Pneumonia Recurrent UTI Renal insufficiency Restless leg Home Medications ascorbate calcium (vitamin C) 500 mg tablet 500 mg PO .Weekly 09/14/22 [History Last Taken Unknown] aspirin 81 mg tablet,delayed release (Adult Low Dose Aspirin) 81 mg PO .QO week 09/14/22 [History Last Taken Unknown] magnesium oxide 400 mg PO .3X week 09/14/22 [History Last Taken Unknown] vitamin E mixed 400 unit capsule 400 unit PO DAILY 09/14/22 [History Last Taken Unknown] atenolol 25 mg tablet 25 mg PO BID 09/21/22 [History Last Taken Unknown] apixaban 5 mg tablet (Eliquis) 5 mg PO .COMPLEX #1 TAB 12/07/22 [Rx Last Taken Unknown] calcium cmb no.1-vit M6-V5-CT-B12 120 mg-1,000 unit-10 mg tablet 1,000 tab PO DAILY supplement 12/14/22 [History Last Taken 12/13/22] spironolactone 25 mg tablet 25 mg PO DAILY 12/14/22 [History Last Taken Unknown] Allergy/AdvReac Type Severity Reaction Status Date / Time sulfamethoxazole Allergy Severe UNK Verified 12/14/22 10:19 [From Bactrim] trimethoprim [From Bactrim] Allergy Severe UNK Verified 12/14/22 10:19 lisinopril AdvReac Severe cough Verified 12/14/22 10:19 Sulfa (Sulfonamide AdvReac Unknown unknown Verified 12/14/22 10:19 Antibiotics) Family History Mother CVA (cerebral vascular accident) Aneurysm Other Colon cancer Diabetes Heart disease Hypertension Kidney disease MVP (mitral valve prolapse) Surgical History History of appendectomy History of cholecystectomy Social History Smoking Status: Never smoker alcohol intake: never substance use type: does not use caffeine: Yes Type: coffee Number of servings: 1 ROS ROS Narrative Pertinent positives and pertinent negatives as noted in HPI. All other systems were reviewed and are negative Vital Signs Vital Signs Vital Signs: 12/14/22 19:35 Temperature 97.5 F L Temperature Source Temporal Pulse Rate 92 Respiratory Rate 15 Blood Pressure 149/98 H Blood Pressure Mean 115 Pulse Ox 98 Oxygen Delivery Method Room Air Weight Weight: 81.5 kg Body Mass Index (BMI) 29.0 Physical Exam Narrative Physical exam: General: Well-nourished, well-developed. Head: Normocephalic, atraumatic, no tenderness Eyes: Vision is grossly intact. EOMI ENT, no trauma, moist mucous membranes, no rhinorrhea Neck: Nontender, No thyromegaly. CVS: Regular rate and rhythm. S1-S2 present. No murmur, gallop or rub. Respiratory : clear to auscultation bilaterally, chest wall nontender, no wheezing Abdomen: Soft, nontender, nondistended, normal bowel sounds, no masses : Deferred Back: Nontender, no CVA tenderness. Extremities: Nontender full range of motion, no trauma Skin: Normal color, no trauma, abrasions Neuro: Alert, oriented, cranial nerves II through XII grossly intact. Strength in all extremities 5 out of 5. Deep tendon reflexes not hyperreflexia. No dysm etria with wepaht-lk-rqjd test and kvqz-ko-weod test. Psychiatry: Normal mood. Normal affect. Not depressed. Not anxious. Results Lab / Micro Data Result Diagrams: 12/14/22 19:50 12/14/22 19:50 Labs: Laboratory Results - last 24 hr 12/14/22 19:50: WBC 9.2, RBC 5.66 H, Hgb 15.0, Hct 48.3 H, MCV 85.3, MCH 26.5 L, MCHC 31.1 L, RDW Std Deviation 48.0 H, RDW Coeff of Imani 15.5 H, Plt Count 301, MPV 9.5, Immature Gran % (Auto) 0.500, Neut % (Auto) 70.2 H, Lymph % (Auto) 18.9 L, [place] % (Auto) 8.8, Eos % (Auto) 0.8, Baso % (Auto) 0.8, Absolute Neuts (auto) 6.5, Absolute Lymphs (auto) 1.74, Nucleated RBC % 0 12/14/22 19:50: Sodium 139, Potassium 3.8, Chloride 103, Carbon Dioxide 26.0, Anion Gap 10, BUN 19 H, Creatinine 1.18 H, Estim Creat Clear Calc 41.53, Est GFR (MDRD) Af Amer 58 L, Est GFR (MDRD) Non-Af 48 L, BUN/Creatinine Ratio 16.1, Glucose 160 H, Calcium 9.7, Total Bilirubin 0.30, AST 16, ALT 21, Alkaline Phosphatase 72, Troponin I High Sens 5, Total Protein 8.0, Albumin 4.0, Globulin 4.0, Albumin/Globulin Ratio 1.[address] 12/14/22 20:11 IMPRESSION: Negative head/brain CT without intravenous contrast. Electronically Signed: Yobani Huang MD at 20:46 EST Reading Location ID and State: [facility] / [place] , Service support , Assessment & Plan Assessment/Plan (1) Paresthesia: (2) Essential hypertension: PLAN: Plan Paresthesia Serial NINDS NIH Scale ordered Impression of head CT by radiology: Negative. Upon my personal head CT image review: I agree with radiologist interpretation Lipid profile and A1c ordered. Physical therapy, occupational therapy and to work with patient. N.p.o. until bedside swallow eval. Daily aspirin. Patient has reservation about statins at this time. We will check lipid panel. Permissive hypertension. Control blood pressure with labetalol for systolic blood pressure of more than 220 or diastolic blood pressure of more than 120. MRI/MRA of head; brain; and neck. Echocardiogram ordered. Review of record shows that the patient had echocardiogram on 12/06/2022 as a follow-up of PE. The echocardiogram showed multiple mobile clots in the right ventricular outflow tracts. Reportedly patient had a follow-up echocardiogram at the hospital on 12/15/2022. Hypertension Blood pressure is not within goal. Because of permissive hypertension Home blood pressure medications will be held. Trend blood pressures. DVT prophylaxis: Not indicated as patient is on Eliquis for recent VTE. Eliquis continued. Charges/Coding Visit Charges Inpatient E&M: 07980 Init Hosp L2
[2022-12-14 22:37] VITALS: BP 134/78; PULSE 75; RESP 19; TEMP 36.4; O2SAT 93
[2022-12-14 23:12] VITALS: BMI 28.9
[2022-12-14 23:37] VITALS: BP 147/81; PULSE 71; RESP 16; TEMP 36.7; O2SAT 96
[2022-12-15] VITALS (7 sets, daily range): BP systolic 122–149; BP diastolic 73–86; PULSE 68–72; RESP 15–17; TEMP 36.4–36.8; O2SAT 92–96; BMI 28.9
--- NOTE | 2022-12-15 00:51 | NURSING ---
Pt educated about MRI tomorrow. Pt expressed feelings of claustrophobia and denied need of medication for MRI.
[2022-12-15 06:18] LABS: Absolute Lymphocyte Count 1.65 X10^3/uL (0.83-4.51); Absolute Neutrophil Count 4.1 X10^3/uL (2.0-7.7); Basophil# 0.06 X10^3/uL; Basophil% 0.9 % (0-1); Eosinophil# 0.09 X10^3/uL; Eosinophils% 1.4 % (0-5); Hematocrit 43.1 % (37-47); Hemoglobin 13.3 g/dL (12.0-15.0); Lymphocyte # 1.65 X10^3/ul (0.83-4.51); Lymphocyte % 24.9 % (19-41); Mean Corp Hgb Conc 30.9 g/dL (32-36); Mean Corpuscular Hgb 26.3 pg (27.0-32.0); Mean Corpuscular Volume 85.2 fL (81-99); Mean Platelet Vol. 9.2 fl (6.2-12.0); Monocyte% 10.6 % (0-10); NRBC Flagged by Analyzer 0 % (0-5); Neutrophil # 4.09 X10^3/uL (2.7-7.7); Neutrophil % 61.7 % (47-70); Platelet Count 258 K/mm3 (150-450); RBC Distribution Width CV 15.5 % (11.6-14.6); RBC Distribution Width SD 48.3 fl (35.1-43.9); Red Blood Count 5.06 M/mm3 (4.2-5.4); White Blood Count 6.6 K/mm3 (4.4-11.0)
[2022-12-15 06:50] LABS: Anion Gap 6 (5-15); BUN 23 mg/dL (7-18); BUN/Creat Ratio 25.8 RATIO (10-20); Calcium,Total 9.1 mg/dL (8.5-10.1); Chloride 108 mmol/L (98-107); Cholesterol 227 mg/dL (200); Creatinine, Serum 0.89 mg/dL (0.55-1.02); EST Glomerular Filtration Rate 66 mL/min (>60); Est Glom Filt Rate - Afr Amer 80 mL/min (>60); Estimated Creatinine Clearance 55.06 ml/min; Glucose 95 mg/dL (74-106); High Density Lipoprotein 64 mg/dL; Potassium 4.2 mmol/L (3.5-5.1); Sodium Level 138 mmol/L (136-145); Triglycerides 72 mg/dL; Very Low Density Lipoprotein 14 mg/dL (5-40)
[2022-12-15 08:50] LABS: Hemoglobin A1c 5.4 % (3.8-5.6)
[2022-12-15] MEDS: APIXABAN 5 MG TABLET PO (09:54)
[2022-12-15] MEDS: Aspirin 81 MG TAB.CHEW PO (09:54)
--- NOTE | 2022-12-15 11:04 | CT_ITS ---
STUDY: CT BRAIN WITHOUT CONTRAST REASON FOR EXAM: Female, 72 years old. Right parasthesia RADIATION DOSAGE (If Supplied By Facility): CTDIvol = ( 29.25 ) mGy, DLP = ( 1482.83 ) mGycm TECHNIQUE: Transaxial CT imaging of the brain was performed without administration of intravenous contrast material. Individualized dose optimization techniques were used for this CT. COMPARISON: Head CT dated December 14, 2022 FINDINGS: Normal soft tissue structures. Normal calvarium. There is no visualized dense artery sign or sulcal effacement. There is mild cerebral atrophy with widening of the extra-axial spaces and ventricular dilatation. Normal white matter tracts of the cerebral hemispheres. Normal basal ganglia and thalami. Normal brainstem. Normal cerebellum. There is no intracranial hemorrhage. There are no findings of an acute ischemic infarction. Normal visualized paranasal sinuses. IMPRESSION: Chronic involutional changes of the brain. STUDY: CTA HEAD AND NECK WITH CONTRAST REASON FOR EXAM: Female, 72 years old. Right parasthesia RADIATION DOSAGE (If Supplied By Facility): CTDIvol = ( 29.25 ) mGy, DLP = ( 1482.83 ) mGycm TECHNIQUE: CT angiography was performed with a multi-detector CT scanner. Data acquisition was obtained from the skull base through the vertex following intravenous administration of IV 100mL [id number]-[id number]. MIP images were reconstructed from the axial data set. Post-processing of the angiographic images was performed, with multiplanar reformation and 3D reconstruction. Individualized dose optimization techniques were used for this CT. COMPARISON: No relevant priors. FINDINGS: CTA of the head: Normal bilateral petrous carotid arteries. There is calcified plaque formation of the right cavernous carotid artery, with a mild stenosis (less than 50%). There is calcified plaque formation of the left cavernous carotid artery, without a cross-sectional luminal stenosis. Normal right A1 segments of the anterior cerebral artery. Normal left A1 segments of the anterior cerebral artery. Normal intact anterior communicating artery (ACOM). Normal bilateral A2 segments of the anterior cerebral arteries. Normal right M1 and M2 segments of the middle cerebral arteries, with a normal M1 bifurcation. Normal left M1 and M2 segments of the middle cerebral arteries, with a normal M1 bifurcation. Normal right posterior communicating artery (PCOM). Normal left posterior communicating artery (PCOM). Normal bilateral vertebral arteries. Normal basilar artery with a normal basilar bifurcation. The visualized bilateral superior cerebellar (SCA) arteries are normal. Normal bilateral P1, P2 and visualized P3 segments of the posterior cerebral arteries. There is no demonstrated aneurysm of the tangirnaq of [place]. There is no demonstrated abnormality of the visualized brain. Neck: A partially occlusive embolus is present in several branches of a left upper lobe pulmonary artery seen on images 7 through 32/550 series 4. AORTIC ARCH: There is atherosclerotic calcific plaque formation of the aortic arch and great vessels arising from the aortic arch, without a hemodynamically significant stenosis. There is a normal origin of the brachiocephalic, left common carotid, and left subclavian arteries. Normal origins of the brachiocephalic, left common carotid, and left subclavian arteries. RIGHT CAROTID ARTERIES: Normal right common carotid artery (CCA). There is mild atherosclerotic plaque formation with minimal narrowing of the right carotid bulb. There is mild atherosclerotic plaque formation of the origin of the right internal carotid artery with less than 50% cross sectional diameter stenosis. Normal visualized cervical portion of the right internal carotid artery. Normal origin of the right external carotid artery (ECA). LEFT CAROTID ARTERIES: Normal left common carotid artery (CCA). A single tiny eccentric focus of atherosclerotic calcification is present in the left carotid bulb. Normal left common carotid bulb. Normal origin of the left internal carotid (ICA) artery without a hemodynamically significant stenosis. Normal visualized cervical portion of the left internal carotid artery. Normal origin of the left external carotid artery (ECA). VERTEBRAL ARTERIES: Normal bilateral vertebral arteries. CT/CTA Head AND Neck W/ Contrast IMPRESSION: 1. Normal tangirnaq of [place] without a demonstrated aneurysm or hemodynamically significant stenosis. 2. Mild atherosclerotic plaque and minimal narrowing of the right carotid bulb and origin of the ICA. Essentially normal left sided neck carotid artery and ICA. 3. A partially occlusive embolus is present in several branches of a left upper lobe pulmonary artery seen on images 7 through 32/550 series 4. N.B. : The above Results were Read Back by Fabrice Guzman MD to Kraig Lee RN, and understanding confirmed on 12/15/2022 12:29:40 (ET). Electronically Signed: Fabrice Guzman MD at 12:54 EST ,
--- NOTE | 2022-12-15 18:27 | DCINST_ITS ---
Discharge Instructions Diet Discharge Diet: No restrictions Activity Discharge Activity: Return to Normal Activity Weight Bearing Status: Full weight bearing Follow Up Care Test Results: Test results from this visit will be discussed in further detail at your follow- up appointment, if applicable. Discharge Plan Admission Admit Date/Time: 12/14/22 22:22 Primary Reason for Your Visit: parathesias of right arm and leg Attending Provider: Ran Brizuela Primary Care Provider: Isabela Juarez Consulting Providers: Sreekanth Hart Discharge Orders/Prescriptions Prescriptions: Continued vitamin E mixed 400 unit capsule 400 unit PO DAILY ascorbate calcium (vitamin C) 500 mg tablet 500 mg PO .Weekly magnesium oxide 400 mg magnesium tablet 400 mg PO .3X week Ca cmb no.1-vit J4-H2-FG-B12 120-1,000-10 mg-unit-mg Tablet 1,000 tab PO DAILY spironolactone 25 mg tablet 25 mg PO DAILY atenolol 25 mg tablet 25 mg PO BID Eliquis 5 mg tablet 5 mg PO .COMPLEX Qty: 1 0RF Rx Instructions: 5 mg orally 10 mg (2 tablets) twice a day for 7 days (until Tuesday12/11/22) , then 5 mg twice a day; Discontinued aspirin [Adult Low Dose Aspirin] 81 mg tablet,delayed release (DR/EC) 81 mg PO .QO week Referrals / Follow Up: Sreekanth Steve MD [Med Staff - Active Staff] - See Referral Note (as scheduled) Isabela Juarez DO [Primary Care Provider] - See Referral Note (within one month) Antoine Hall MD [Med Staff - Active Staff] - See Referral Note (as scheduled) Disposition Disposition (needs filled in before D/C Order can be placed): Home, Self Care
--- NOTE | 2022-12-15 18:32 | PCM.DC.SUM ---
Providers Date of Admission: 12/14/22 Date of Discharge: 12/15/22 Primary Care Physician: Dr. Isabela Juarez, DO Reason For Visit: STROKELIKE SYMPTOMS Diagnosis Discharge Diagnosis (1) Paresthesia: Status: Acute Code(s): R20.2 - Paresthesia of skin (2) Essential hypertension: Status: Acute Code(s): I10 - Essential (primary) hypertension Plan 1. Paresthesias in the right arm and right leg-etiology unknown #2 recent pulmonary embolism 2022-present on admission Medications at Discharge Home Medications ascorbate calcium (vitamin C) 500 mg tablet 500 mg PO .Weekly 09/14/22 magnesium oxide 400 mg PO .3X week 09/14/22 vitamin E mixed 400 unit capsule 400 unit PO DAILY 09/14/22 atenolol 25 mg tablet 25 mg PO BID 09/21/22 calcium cmb no.1-vit [id number] 120 mg-1,000 unit-10 mg tablet 1,000 tab PO DAILY supplement 12/14/22 spironolactone 25 mg tablet 25 mg PO DAILY 12/14/22 apixaban 5 mg tablet (Eliquis) 5 mg PO BID #180 tabs 12/16/22 Hospital Course Operations None Procedures None Summary of Care Provided Minutes Spent on Discharge: 31 Hospital Course: This 72-year-old white female was seen in the emergency room at [facility] with complaints of tingling in her left arm and left leg. Patient denied any focal weakness. Patient had recently been admitted to [facility] and was placed on Eliquis due to a pulmonary embolism. Patient stated that her symptoms of tingling in her left arm and left leg lasted for approximately an hour or less. Work-up in the emergency room included a CT of the brain which showed no abnormality, patient was admitted to PCU and underwent an MRI which was unremarkable. I reviewed the patient's hospital records from [facility], she had evidence of small clots in the right ventricle. I assured the patient that these would be reabsorbed if she continued on the Eliquis, it was my opinion that she did not need a repeat echocardiogram performed now. On 12/15/2022, patient was seen and examined: On examination she appeared in good health and spirits, she does not appear to be in any distress. Vital signs as documented. Skin warm and dry and without overt rashes. Neck without JVD, thyroid appears normal, trachea is midline, neck is supple. Lungs clear, normal air movement was noted. Heart exam notable for regular rhythm, normal sounds and absence of murmurs, rubs or gallops. Abdomen unremarkable and without evidence of organomegaly, masses, or abdominal aortic enlargement, bowel sounds are present in all 4 quadrants, no abdominal tenderness was noted. Extremities nonedematous, no cyanosis was noted, no clubbing was noted. Neuro: Cranial nerves II through XII are grossly intact, no focal motor deficits were noted, sensation to light touch and pinprick is intact, motor exam 5/5 throughout. Psych: Patient is alert and oriented x3, she does not appear anxious or depressed, she does not appear agitated. Patient was discharged in stable condition on 12/15/2022. Weight / BMI Weight Weight: 81.3 kg Body Mass Index (BMI) 28.9 ABG / Lab / Microbiology Data Result Diagrams: 12/15/22 05:45 12/15/22 05:45 Laboratory: Laboratory Results - last 24 hr 12/14/22 19:50: WBC 9.2, RBC 5.66 H, Hgb 15.0, Hct 48.3 H, MCV 85.3, MCH 26.5 L, MCHC 31.1 L, RDW Std Deviation 48.0 H, RDW Coeff of Imani 15.5 H, Plt Count 301, MPV 9.5, Immature Gran % (Auto) 0.500, Neut % (Auto) 70.2 H, Lymph % (Auto) 18.9 L, [place] % (Auto) 8.8, Eos % (Auto) 0.8, Baso % (Auto) 0.8, Absolute Neuts (auto) 6.5, Absolute Lymphs (auto) 1.74, Nucleated RBC % 0 12/14/22 19:50: Sodium 139, Potassium 3.8, Chloride 103, Carbon Dioxide 26.0, Anion Gap 10, BUN 19 H, Creatinine 1.18 H, Estim Creat Clear Calc 41.53, Est GFR (MDRD) Af Amer 58 L, Est GFR (MDRD) Non-Af 48 L, BUN/Creatinine Ratio 16.1, Glucose 160 H, Calcium 9.7, Total Bilirubin 0.30, AST 16, ALT 21, Alkaline Phosphatase 72, Troponin I High Sens 5, Total Protein 8.0, Albumin 4.0, Globulin 4.0, Albumin/Globulin Ratio 1.0 12/15/22 05:45: WBC 6.6, RBC 5.06, Hgb 13.3, Hct 43.1, MCV 85.2, MCH 26.3 L, MCHC 30.9 L, RDW Std Deviation 48.3 H, RDW Coeff of Imani 15.5 H, Plt Count 258, MPV 9.2, Immature Gran % (Auto) 0.500, Neut % (Auto) 61.7, Lymph % (Auto) 24.9, [place] % (Auto) 10.6 H, Eos % (Auto) 1.4, Baso % (Auto) 0.9, Absolute Neuts (auto) 4.1, Absolute Lymphs (auto) 1.65, Nucleated RBC % 0 12/15/22 05:45: Sodium 138, Potassium 4.2, Chloride 108 H, Carbon Dioxide 24.0, Anion Gap 6, BUN 23 H, Creatinine 0.89, Estim Creat Clear Calc 55.06, Est GFR (MDRD) Af Amer 80, Est GFR (MDRD) Non-Af 66, BUN/Creatinine Ratio 25.8 H, Glucose 95, Calcium 9.1, Triglycerides 72, Cholesterol 227 H, LDL Cholesterol 149 H, VLDL Cholesterol 14, HDL Cholesterol 64 12/15/22 05:45: Hemoglobin A1c 5.4 Radiography Diagnostic Testing: Radiology Impression Brain CT 12/14/22 20:11 IMPRESSION: Negative head/brain CT without intravenous contrast. Electronically Signed: Yobani Huang MD at 20:46 EST Reading Location ID and State: [facility] / [place] , Service support , Head/Neck CTA 12/15/22 11:04 IMPRESSION: 1. Normal grindstone of Torres without a demonstrated aneurysm or hemodynamically significant stenosis. 2. Mild atherosclerotic plaque and minimal narrowing of the right carotid bulb and origin of the ICA. Essentially normal left sided neck carotid artery and ICA. 3. A partially occlusive embolus is present in several branches of a left upper lobe pulmonary artery seen on images 7 through 32/550 series 4. N.B. : The above Results were Read Back by Fabrice Guzman MD to Kraig Lee RN, and understanding confirmed on 12/15/2022 12:29:40 (ET). Electronically Signed: Fabrice Guzman MD at 12:54 EST Reading Location ID and State: [facility] / [place] , Service support , D/C Instructions Discharge Diet: No restrictions Weight Bearing Status: Full weight bearing Meaningful Use Info Meaningful Use Diagnoses (Choose all that apply): None applicable Discharge Plan Admission Admit Date/Time: 12/14/22 22:22 Primary Reason for Your Visit: parathesias of right arm and leg Attending Provider: Ran Brizuela Primary Care Provider: Isabela Juarez Consulting Providers: Sreekanth Hart Discharge Orders/Prescriptions Prescriptions: Continued vitamin E mixed 400 unit capsule 400 unit PO DAILY ascorbate calcium (vitamin C) 500 mg tablet 500 mg PO .Weekly magnesium oxide 400 mg magnesium tablet 400 mg PO .3X week Ca cmb no.1-vit [id number] 120-1,000-10 mg-unit-mg Tablet 1,000 tab PO DAILY spironolactone 25 mg tablet 25 mg PO DAILY atenolol 25 mg tablet 25 mg PO BID Discontinued aspirin [Adult Low Dose Aspirin] 81 mg tablet,delayed release (DR/EC) 81 mg PO .QO week No Action Eliquis 5 mg tablet 5 mg PO BID Qty: 180 4RF Referrals / Follow Up: Sreekanth Steve MD [Med Staff - Active Staff] - See Referral Note (as scheduled) Isabela Juarez DO [Primary Care Provider] - See Referral Note (within one month) Antoine Hall MD [Med Staff - Active Staff] - See Referral Note (as scheduled) Disposition Disposition (needs filled in before D/C Order can be placed): Home, Self Care Charges/Coding Visit Charges Inpatient E&M: 71676 Disch Hosp >30min
--- NOTE | 2022-12-15 19:00 | MRI_ITS ---
STUDY: MRI BRAIN WITHOUT CONTRAST REASON FOR EXAM: Female, 72 years old. CVA TECHNIQUE: Standardized multiplanar fat and water weighted pulse sequences were obtained. COMPARISON: Recent CT and CTA HEMISPHERES, CEREBELLUM AND BRAINSTEM: 1. The cerebral parenchyma, ventricular system, subarachnoid spaces have normal configuration. There is a normal gyral pattern. There is normal patterson/white differentiation. No midline shift.. 2. The hemispheric white matter has normal appearance. 3. No intraparenchymal mass, hemorrhage, or acute territorial infarct. 4. The cerebellum, brainstem, basilar and suprasellar cisterns have normal appearance. No Chiari malformation. PITUITARY: Infundibulum and pituitary have normal configuration. Midline structures appear normal. CSF SPACES: Appropriate for age. No hydrocephalus. Basal cisterns are patent. VESSELS: 1. There are normal flow voids noted in the great vessels at the skull base ORBITS AND PARANASAL SINUSES: 1. Both globes, extraocular muscles, optic nerves and retrobulbar fat appear unremarkable. 2. Paranasal sinuses are clear. BONY ELEMENTS: Bony elements of the cranial vault, facial skeleton and skull base have normal appearance. SCALP AND SOFT TISSUES: Normal appearance of the soft tissues of the scalp and the visualized face MRI/Brain without Contrast IMPRESSION: 1. No intracranial mass, hemorrhage, or acute territorial infarct. 2. No radiographically significant sinus disease. Electronically Signed: Antoine Mast MD at 19:48 EST ,
--- NOTE | 2022-12-15 20:02 | NURSING ---
This RN spoke with Dr. Brizuela and read MRI results. Ok to discharge per Dr. Brizuela and MRI is negative. Ivania ONEAL
[2022-12-21 15:09] LABS: Protein C Antigen 177 % (60-150)
[2022-12-21 15:16] LABS: Protein C, Functional 194 % (73-180)
[2022-12-21 15:17] LABS: Anti-Cardiolipin Ab, IgG, Qn < 9 GPL U/mL (0-14); Anti-Cardiolipin Ab, IgM, Qn < 9 MPL U/mL (0-12); Anti-Thrombin 3 AG, Immunol 105 % (72-124); Antithrombin 3 Function 135 % (75-135); Beta-2-Glycoprotein I IgA <9 (0-25); Beta-2-Glycoprotein I IgG <9 (0-20); Beta-2-Glycoprotein I IgM <9 (0-32); Protein C, Functional 188 % (73-180)
== END 2022-12-15 20:25 | disposition home or self-care (01) ==
LOC: ED 21:32 → PCU 23:04
PROVIDERS: Admitting Provider Hospitalist; Emergency Provider Emergency Medicine; PCP Family Medicine; Visit Provider Internal Medicine
DX: R20.2 Paresthesia of skin (principal); I26.99 Other pulmonary embolism without acute cor pulmonale; R00.2 Palpitations; E78.5 Hyperlipidemia, unspecified; I10 Essential (primary) hypertension; Z86.718 Personal history of other venous thrombosis and embolism; Z79.899 Other long term (current) drug therapy; Z79.01 Long term (current) use of anticoagulants
CPT/HCPCS: 36415; 70450; 70496; 70498; 70551; 80048; 80053; 80061; 81240; 81241; 83036; 84484; 85025; 85300; 85301; 85302; 85303; 86146; 86147; 93005; 94762; 96360; 96361; 97802; 99221; 99284; J7040; Q9967; A4216; G0378

== ENCOUNTER → 2023-01-04 | Outpatient (CLI) | payer MEDICARE, OTHER, SELFPAY ==
--- NOTE | 2023-01-04 12:55 | ECHOD_ITS ---
Reason For Study: HX OF PE Procedure This was a 2D Doppler, Color Flow transthoracic echocardiogram. Exam performed in department. Left Ventricle Normal LV size. Left ventricular systolic function is normal. The estimated ejection fraction is 60 %. Stage 1 diastolic dysfunction. No regional wall motion abnormalities noted. Right Ventricle Normal RV size. Normal systolic function. Atria Normal left atrium. Normal right atrium. Mitral Valve Normal mitral valve. Mild (1+) eccentric mitral valve insufficiency. Tricuspid Valve Normal tricuspid valve. Mild (1+) tricuspid valve insufficiency. Pulmonary artery systolic pressure is 34 mmHg. Aortic Valve Trisinus/trileaflet aortic valve. Mild focal aortic valve calcification. Pulmonic Valve Normal pulmonic valve. Great Vessels Normal aortic root. The pulmonary artery is normal size. Normal inferior vena cava. Pericardium/Pleural No pericardial effusion. MMode/2D Measurements & Calculations LVIDd: 4.8 cm IVSd: 0.77 cm Ao root diam: 3.5 cm LVIDs: 3.2 cm LVPWd: 0.94 cm RVDd: 3.2 cm FS: 34.1 % LAV(MOD-bp): 46.6 ml EDV(MOD-sp4): 64.1 ml EDV(MOD-sp2): 69.4 ml LAV(MOD-bp) Indexed: 24.5 ml/m2 ESV(MOD-sp4): 22.4 ml ESV(MOD-sp2): 23.0 ml LAV(MOD-sp2): 44.6 ml EF(MOD-sp4): 65.0 % EF(MOD-sp2): 66.9 % LAV(MOD-sp4): 44.7 ml SV(MOD-sp4): 41.7 ml SV(MOD-sp2): 46.4 ml LA A4 area: 17.1 cm2 LA dimension(2D): 3.6 cm RA A4 area: 13.8 cm2 Time Measurements MV dec time: 0.19 sec Doppler Measurements & Calculations MV E max benji: 64.2 cm/sec Lat Peak E' Benji: 12.3 cm/sec Med Peak E' Benji: 6.4 cm/sec MV A max benji: 78.5 cm/sec E/E' lat: 5.2 E/E' med: 10.1 MV E/A: 0.82 MV dec slope: 330.4 cm/sec2 Ao V2 max: 155.3 cm/sec LV V1 max: 99.7 cm/sec Ao max P.7 mmHg LV V1 max P.0 mmHg Ao V2 mean: 106.5 cm/sec LV V1 mean P.2 mmHg Ao mean P.2 mmHg LV V1 mean: 68.6 cm/sec Ao V2 VTI: 37.5 cm LV V1 VTI: 24.4 cm AV (velocity ratio): 0.65 PA V2 max: 71.6 cm/sec TR max benji: 273.7 cm/sec TR max P.0 mmHg ECHO/Echo Complete Interpretation Summary Normal LV size. Left ventricular systolic function is normal. The estimated ejection fraction is 60 %. Stage 1 diastolic dysfunction. Ordering Physician: Avlin Arcos Referring Physician: Isabela Juarez Performed By: Floresita Lilly RDCS, RVT
== END | disposition home or self-care (01) ==
LOC: CVS 12:53
PROVIDERS: PCP Family Medicine; Referring Provider Nurse Practitioner Family; Visit Provider Nurse Practitioner Family
DX: I10 Essential (primary) hypertension (principal); Z86.711 Personal history of pulmonary embolism
CPT/HCPCS: 93306

== ENCOUNTER → 2023-07-28 | Outpatient (CLI) | payer MEDICARE, OTHER, SELFPAY ==
[2023-07-28 15:31] LABS: D-Dimer Quantitative (DVT/PE) 0.47 FEU/ug/m (0.27-0.49)
== END | disposition home or self-care (01) ==
LOC: LAB 15:01
PROVIDERS: PCP Family Medicine; Referring Provider Nurse Practitioner Family; Visit Provider Nurse Practitioner Family
DX: R07.9 Chest pain, unspecified (principal); Z86.718 Personal history of other venous thrombosis and embolism
CPT/HCPCS: 36415; 85379

== ENCOUNTER → 2023-09-29 | Outpatient (CLI) | payer MEDICARE, OTHER, SELFPAY ==
--- NOTE | 2023-09-29 13:34 | VDLE_ITS ---
Reason For Study: elevated d-dimer RIGHT LEFT GSV is normal. GSV is normal. CFV is compressible, spontaneous, phasic, CFV is compressible, spontaneous, phasic, competent and demonstrates normal competent, and demonstrates normal augmentation. augmentation. FV is compressible, spontaneous, phasic, FV is compressible, spontaneous, phasic, competent and demonstrates normal competent and demonstrates normal augmentation. augmentation. POP V is compressible, spontaneous, phasic, POP V is compressible, spontaneous, phasic, competent and demonstrates normal competent and demonstrates normal augmentation. augmentation. T/P Trunk is compressible. T/P Trunk is compressible. PTV is compressible. PTV is compressible. RT PerV is compressible. LT PerV is compressible. Procedure This is a venous duplex using B-mode, color flow and spectral Doppler. Exam performed in department. The exam was diagnostic. A preliminary report was called and/or faxed to Dr. Steve. VL/Venous Duplex US - Amish Extrem Interpretation Summary No evidence for acute deep venous thrombosis bilateral lower extremities with p atent and compressible bilateral great saphenous veins. Ordering Physician: Sreekanth Steve Performed By: Anson Campoverde RVT
== END | disposition home or self-care (01) ==
LOC: CVS 13:25
PROVIDERS: Referring Provider Internal Medicine Medical Oncology; Visit Provider Internal Medicine Medical Oncology
DX: R79.89 Other specified abnormal findings of blood chemistry (principal); Z86.718 Personal history of other venous thrombosis and embolism
CPT/HCPCS: 93970

== ENCOUNTER → 2023-10-03 | Outpatient (CLI) | payer MEDICARE, OTHER, SELFPAY ==
--- NOTE | 2023-10-03 15:54 | US_ITS ---
EXAM: US RETROPERITONEAL LIMITED, RENAL CLINICAL INDICATION: UTI TECHNIQUE: Limited grayscale and color Doppler sonographic evaluation of the retroperitoneum was performed. COMPARISON: No relevant prior studies available. FINDINGS: RIGHT KIDNEY: Unremarkable. No hydronephrosis. No shadowing calculus. No perinephric collection is demonstrated. The right kidney measures 9.3 cm in length. LEFT KIDNEY: Unremarkable. No hydronephrosis. No shadowing calculus. No perinephric collection is demonstrated. The left kidney measures 10.4 cm in length. US/Kidney and Bladder IMPRESSION: Normal kidneys and bladder. Electronically Signed: Kobe Varner MD at 4:20 EST ,
== END | disposition home or self-care (01) ==
LOC: US 15:53
PROVIDERS: Referring Provider Urology; Visit Provider Urology
DX: N39.0 Urinary tract infection, site not specified (principal)
CPT/HCPCS: 76770

== ENCOUNTER 2024-04-28 11:43 | Emergency (ER) | payer MEDICARE, OTHER, SELFPAY ==
[2024-04-28 11:46] VITALS: BP 152/91; PULSE 78; RESP 16; TEMP 36.3; O2SAT 93; BMI 29.2
--- NOTE | 2024-04-28 11:48 | EDS_ITS ---
HPI History of Present Illness Chief Complaint: Upper Extremity Injury [facility] Medical History Gout Pulmonary embolism Abnormal liver function test History of left heart catheterization (LHC) (~09/05/07) History of DVT (deep vein thrombosis) (12/02/22) Essential hypertension Hyperlipidemia Lower extremity weakness Renal insufficiency Lower abdominal pain B12 nutritional deficiency Restless leg Dizziness Fluttering heart History of blood clots Recurrent UTI Pneumonia Fatty liver Anemia Home Medications ?Medication ?Instructions ?Recorded ?Last Taken ?Type aspirin 81 mg tablet,delayed 81 mg PO DAILY 07/28/23 Unknown History release (Adult Low Dose Aspirin) atenolol 25 mg tablet 25 mg PO BID #180 tabs 03/19/24 Unknown Rx Allergy/AdvReac Type Severity Reaction Status Date / Time sulfamethoxazole (From Allergy Severe UNK Verified 04/28/24 11:46 Bactrim) trimethoprim (From Bactrim) Allergy Severe UNK Verified 04/28/24 11:46 lisinopril AdvReac Severe cough Verified 04/28/24 11:46 prednisone AdvReac Intermediate Other Verified 04/28/24 11:46 Sulfa (Sulfonamide AdvReac Unknown unknown Verified 04/28/24 11:46 Antibiotics) Family History Mother CVA (cerebral vascular accident) Aneurysm Other Colon cancer Diabetes Heart disease Hypertension Kidney disease MVP (mitral valve prolapse) Surgical History History of appendectomy History of cholecystectomy Social History Smoking Status: Never smoker alcohol intake: never substance use type: does not use caffeine: Yes Type: coffee Number of servings: 1 EXAM Physical Exam Const Vital Signs: 04/28/24 11:46 Temperature 97.3 F L Temperature Source Oral Pulse Rate 78 Respiratory Rate 16 Blood Pressure 152/91 H Blood Pressure Mean 111 Pulse Ox 93 Oxygen Delivery Method Room Air Discharge Plan Triage Chief Complaint: Upper Extremity Injury ED Provider: Provider,Ed Physician Dx/Rx/DC Orders Prescriptions: No Action aspirin [Adult Low Dose Aspirin] 81 mg tablet,delayed release (DR/EC) 81 mg PO DAILY atenolol 25 mg tablet 25 mg PO BID Qty: 180 4RF Primary Care Provider: Care Physician,No Primary Referrals: Care Physician,No Primary [Primary Care Provider] - Print Language: Gibraltarian
--- NOTE | 2024-04-28 12:02 | VDUE_ITS ---
Reason For Study: Swelling RUE Right Proximal Left Proximal Right jugular vein is spontaneous, widely Left subclavian vein is spontaneous, widely patent, phasic, with no intraluminal patent, phasic, with no intraluminal echogenicity noted. echogenicity noted. Right subclavian vein is spontaneous, widely patent, phasic, with no intraluminal echogenicity noted. Right Lower Arm Right radial vein is compressible. Right ulnar vein is compressible. Right Arm Right axillary vein is spontaneous, patent, phasic, competent, compressible and demonstrates augmentation. Rt Brachial V is DILATED and NON COMPRESSIBLE consistent with acute DVT Rt Basilic V is DILATED and NON COMPRESSIBLE consistent with acute SVT. Right cephalic vein is compressible. VL/Venous Duplex US, Unilateral Interpretation Summary Acute deep vein thrombosis noted in the right brachial vein. Acute superficial vein thrombosis noted in the right basilic vein Ordering Physician: Antoine Huertas Performed By: Destiny Arcos, LAINA, RVT ???
--- NOTE | 2024-04-28 12:04 | EDS_ITS ---
<Statement entered by Roslyn Hood MD - 04/28/24 20:50> I have personally performed a face to face assessment of the patient and have reviewed the EMILE Note. Patient presents secondary to right upper extremity pain and swelling. Patient notes that she had a IV line as well as a blood draw to the right upper extremity within the past week. She noted some slight redness and swelling with pain to palpation along the medial aspect of the right elbow and right proximal forearm. She does have a history of prior DVT as well as pulmonary embolism. She is currently on aspirin but no other form of anticoagulation. Patient sitting upright in bed no acute distress. Head and neck examination unremarkable. Heart is regular rate and rhythm. Lung sounds are clear. Abdomen is soft and nontender. Right upper extremity examination reveals mild edema and tenderness along the medial aspect of the right elbow and proximal forearm. No significant erythema noted. Good range of motion of the elbow. Good distal pulses. Venous ultrasound of the right upper extremity was obtained. She has evidence of a DVT in the right brachial vein. She has evidence of a superficial DVT in the right basilic vein. Patient has been on Eliquis in the past and will be restarted on this. She follows with hematology here in the hospital and will follow-up with them. HPI History of Present Illness Chief Complaint: Upper Extremity Injury Narrative Narrative: Patient is a 73-year-old female patient history of DVTs, PEs who is currently only on aspirin, hypertension who was recently started on Lipitor 2 weeks ago, presenting to the emergency department with right arm pain, right arm redness. Patient states that she did have an IV placed for greater than 24 hours to the right arm, then Tuesday which was 4 days ago patient had a blood draw from the right arm. Patient states that there is some redness, it is improving and she feels that her 1 vein is getting more tight. She is here for evaluation. She is concerned there might be a blood clot. [facility] Medical History Gout Pulmonary embolism Abnormal liver function test History of left heart catheterization (LHC) (~09/05/07) History of DVT (deep vein thrombosis) (12/02/22) Essential hypertension Hyperlipidemia Lower extremity weakness Renal insufficiency Lower abdominal pain B12 nutritional deficiency Restless leg Dizziness Fluttering heart History of blood clots Recurrent UTI Pneumonia Fatty liver Anemia Home Medications ?Medication ?Instructions ?Recorded ?Last Taken ?Type aspirin 81 mg tablet,delayed 81 mg PO DAILY 07/28/23 Unknown History release (Adult Low Dose Aspirin) atenolol 25 mg tablet 25 mg PO BID #180 tabs 03/19/24 Unknown Rx apixaban 5 mg (74 tabs) tablets in See Rx Instructions PO .COMPLEX 04/28/24 Unknown Rx a dose pack (Eliquis DVT-PE Treat #74 tabs 30D Start) Allergy/AdvReac Type Severity Reaction Status Date / Time sulfamethoxazole (From Allergy Severe UNK Verified 04/28/24 11:46 Bactrim) trimethoprim (From Bactrim) Allergy Severe UNK Verified 04/28/24 11:46 lisinopril AdvReac Severe cough Verified 04/28/24 11:46 prednisone AdvReac Intermediate Other Verified 04/28/24 11:46 Sulfa (Sulfonamide AdvReac Unknown unknown Verified 04/28/24 11:46 Antibiotics) Family History Mother CVA (cerebral vascular accident) Aneurysm Other Colon cancer Diabetes Heart disease Hypertension Kidney disease MVP (mitral valve prolapse) Surgical History History of appendectomy History of cholecystectomy Social History Smoking Status: Never smoker alcohol intake: never substance use type: does not use caffeine: Yes Type: coffee Number of servings: 1 ROS ROS ED ROS Narrative Constitutional: Negative for fever, chills, weight loss, weakness Eyes: Negative for vision loss, vision change, double vision ENT: Negative for any sore throat, ear pain, congestion Cardiovascular: Negative for any chest pain, tightness, palpitations Respiratory: Negative for any cough, sputum production, hemoptysis, dyspnea, dyspnea on exertion, orthopnea Gastrointestinal: Negative for any abdominal pain, nausea, vomiting, diarrhea, constipation, blood in stool, blood in vomit : Negative for any urinary frequency, dysuria, retention, blood in urine Muscle skeletal: Negative for any neck pain, back pain. Positive for right arm pain and redness, Neurological: Negative for any headache, syncope, dizziness Skin: Negative for any rashes, itching, abrasions, lacerations Psychiatric: Negative for any depression, anxiety, stress, suicidal ideation, homicidal ideation Hematologic: Negative for any excessive bruising, easy bleeding EXAM Physical Exam Narrative Exam Narrative: Vital signs reviewed. HEET: Head normocephalic atraumatic, TMs clear bilaterally. Posterior pharynx is clear, moist mucous membranes. Nares clear bilaterally. Neck: Supple with no lymphadenopathy or tenderness. No signs of meningismus. Cardiac: Regular rate and rhythm no murmurs gallops or rubs, equal peripheral pulses bilaterally. Respiratory: Lungs clear to auscultation bilaterally. No chest tenderness. Abdomen: Soft, nontender, nondistended. No abdominal bruit or pulsatile masses. No hepatosplenomegaly Extremities: No peripheral edema, no signs of gross trauma or deformity. Active full range of motion of all extremities. Patient is able to flex and extend. Patient has no redness over the joint, no evidence of any bursitis, infectious bursitis. Patient does have slight erythema to the medial aspect of the right forearm, right medial epicondyle. Slight tenderness on palpation, I do feel a vein that she thinks is more pronounced. Patient has full range of motion. Patient able to flex and extend without any difficulty. Patient does have some old bruising to the antecubital area where previous blood draws were taken. Neuro: Cranial nerves II through XII intact, no focal neurological deficits. Skin: Clean dry and intact with no rash, purpura, petechiae, vesicles or pustules. Backs/flank: No CVA tenderness, no midline spinal tenderness, no deformity. Psych: Normal mood and affect. No SI, HI or acute psychosis. Const Vital Signs: 04/28/24 11:46 Temperature 97.3 F L Temperature Source Oral Pulse Rate 78 Respiratory Rate 16 Blood Pressure 152/91 H Blood Pressure Mean 111 Pulse Ox 93 Oxygen Delivery Method Room Air [facility] Treatment and Re-Evaluation :: Differential diagnosis includes however is not limited to: Thrombophlebitis, DVT, cellulitis, inflammatory response, muscle strain Patient appears to be in no obvious respiratory distress vital signs are stable, patient presents to the emergency department with complaints of right inner arm redness, some tenderness on palpation. I will try to order a DVT study of the right upper extremity, sometimes in the weekends, they do not do that. I spoke with different options with the patient. Patient did receive a right upper extremity DVT study, patient in the right brachial vein is dilated and noncompressible consistent with acute DVT. Right basilic vein is dilated and noncompressible consistent with acute SVT. At this time, patient is positive DVT, she will be started on Eliquis. She has had history of being on Eliquis before. 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 Patient was given her first dose today. She will be given Eliquis starter pack. That is 10 mg twice a day for 7 days and then 5 mg twice a day thereafter. Patient instructed return for any chest pain or shortness of breath. Patient's vital signs are stable, patient stable for discharge. Discharge Plan Triage Chief Complaint: Upper Extremity Injury ED Midlevel Provider: Antoine Huertas ED Provider: Roslyn Hood Dx/Rx/DC Orders Clinical Impression: DVT (deep venous thrombosis), Arm pain Instructions: DVT Complications, ED Deep Vein Thrombosis (DVT) Prescriptions: New Eliquis DVT-PE Treat 30D Start 5 mg (74 tabs) tablets,dose pack See Rx Instructions .ROUTE .COMPLEX Qty: 74 0RF Rx Instructions: orally per package directions No Action aspirin [Adult Low Dose Aspirin] 81 mg tablet,delayed release (DR/EC) 81 mg PO DAILY atenolol 25 mg tablet 25 mg PO BID Qty: 180 4RF Primary Care Provider: Care Physician,No Primary Referrals: Sreekanth Steve MD [Med Staff - Active Staff] - Care Physician,No Primary [Primary Care Provider] - Activity Restrictions/Additional Instructions: You have an acute deep vein thrombosis in the brachial vein. You have a superficial thrombosis in the basilic vein. You will be started on Eliquis. You will take 10 mg twice a day for 7 days, today being day 1. You will then t sunitha 5 mg twice a day thereafter. You need to follow-up outpatient. Return for any chest pain or shortness of breath. Print Language: Lao Disposition Disposition: Home, Self Care
[2024-04-28] MEDS: APIXABAN 5 MG TABLET 10 MG PO (14:40)
== END 2024-04-28 14:29 | disposition home or self-care (01) ==
PROVIDERS: Emergency Provider Emergency Medicine; Visit Provider Emergency Medicine
DX: I82.621 Acute embolism and thrombosis of deep veins of right upper extremity (principal)
CPT/HCPCS: 93971; 99282

== ENCOUNTER → 2024-07-13 | Outpatient (CLI) | payer MEDICARE, OTHER, SELFPAY ==
--- NOTE | 2024-07-13 13:29 | BI_ITS ---
MAMMOGRAPHY - BILATERAL SCREENING REASON FOR EXAM: Female, 73 years old. Routine annual screening examination. PERTINENT HISTORY: Mother with breast cancer. Bilateral breast implants. TECHNIQUE: Digital bilateral breast elodia (3D mammographic acquisition) in the CC and MLO projections. 2-D mediolateral oblique (MLO) and craniocaudad (CC) views of both breasts were obtained. CAD: Full Field Digital Mammography with Computer Added Detection was performed. COMPARISON: Comparison is made with prior study dated October 01, 2022. FINDINGS: Breast Composition: There are scattered areas of fibroglandular density. There are no dominant masses or suspicious calcifications. Stable bilateral breast implants. No other significant abnormalities are identified. There has been no significant change since the prior study. BI/SCRN MAMM (CAD)W/ELODIA BILAT IMPRESSION: Stable bilateral screening mammogram. Yearly follow-up mammogram recommended. (A) ASSESSMENT CATEGORY: BIRADS Category 2: Benign. A letter regarding these results will be sent to the patient by the facility within 30 days. Approximately 10% of breast cancers are not detected by mammography. A normal mammogram should not delay biopsy of a clinically suspicious abnormality. [id number] Electronically Signed: Philip Klein MD at 15:51 EDT ,
== END | disposition home or self-care (01) ==
LOC: OPBI 13:26
DX: Z12.31 Encounter for screening mammogram for malignant neoplasm of breast (principal)
CPT/HCPCS: 77063; 77067

== ENCOUNTER → 2025-02-08 | Outpatient (CLI) | payer MEDICARE, OTHER, SELFPAY ==
[2025-02-08 11:40] LABS: AST(SGOT) 26 U/L (<=31); Alanine Aminotransfer ALT/SGPT 22 U/L (<=34); Albumin, Serum 4.1 g/dL (3.4-4.8); Alkaline Phosphatase 74 U/L (35-104); Bilirubin, Direct 0.15 mg/dL (0.00-0.30); Cholesterol 243 mg/dL (<=200); High Density Lipoprotein 74 mg/dL; Low Density Lipoprotein Calc. 153 mg/dL; Protein, Total 7.1 g/dL (5.9-8.4); Total Bilirubin 0.31 mg/dL (0.00-1.30); Triglycerides 81 mg/dL; Very Low Density Lipoprotein 16 mg/dL (5-40); cholesterol:hdl ratio screen 3.29
== END | disposition home or self-care (01) ==
LOC: LAB 10:14
PROVIDERS: Referring Provider Nurse Practitioner Family; Visit Provider Nurse Practitioner Family
DX: E78.5 Hyperlipidemia, unspecified (principal)
CPT/HCPCS: 36415; 80061; 80076